=== PATIENT | female | born 1980 | race Caucasian/White ===

== ENCOUNTER 2019-05-18 13:13 | Emergency (ER) | payer BC ==
[2019-05-18] MEDS ORDERED: Ketorolac 60 MG/2 ML SDV IM ONE (14:58)
[2019-05-18] MEDS ORDERED: HYDROmorphone 1 MG/ML Syringe IM ONE (14:58)
--- NOTE | 2019-05-18 15:17 | EDM.PDOC ---
ED HPI GENERAL MEDICAL PROBLEM - General Chief Complaint: Back Pain or Injury Stated Complaint: HERNIATED SPINE PAIN Time Seen by Provider: 05/18/19 14:40 Source of Information: Reports: Patient, Old Records History Limitations: Reports: No Limitations - History of Present Illness INITIAL COMMENTS - FREE TEXT/NARRATIVE: 38-year-old female presents for evaluation and treatment of back pain. patient has been experiencing back pain for the last 6 weeks, progressively worsening. Patient reports back pain in the low back with radiation into her legs. She states that she has burning sensation in her back and legs. Pain primarily to her low back. She has been seen Dr. Rachel, pain management in [place] as well as Dr. Florez. She did see Dr. Florez yesterday and had multiple MRIs done yesterday. Most recently of an MRI of her lumbar spine in at which just shows some minor disc bulging with no central canal stenosis or neural foraminal stenosis. States that she had MRIs of her C-spine and T-spine done yesterday and was found to have a herniated spine. She has been referred to [facility] or [facility] for surgery for this. She states that she has appreciated weakness and bowel incontinence. She did make Dr. Florez aware of these symptoms yesterday. She does have hydrocodone at home but states that this is not helping with her pain. She did receive a steroid injection last Thursday but did not get any relief from this. She was previously on Flexeril as well but is not on this at this time. primary care provider is Madie Webb. She did contact her primary's office but she is not in today. Was previously in physical therapy; is not at this time. Lower Back Pain Score (Numeric/FACES): 8 - Related Data Allergies Allergy/AdvReac Type Severity Reaction Status Date / Time No Known Allergies Allergy Verified 05/18/19 13:23 Home Meds: Home Meds Hydrocodone/Acetaminophen [Hydrocodon-Acetaminophen 5-325] 1 each PO Q6H #10 tablet 01/31/16 [Rx] Past Medical History Musculoskeletal History: Reports: Other (See Below) Other Musculoskeletal History: buldged discs and herniated spine Neurological History: Reports: Migraines, Other (See Below) Other Neuro History: symptoms of MS - Past Surgical History GI Surgical History: Reports: Appendectomy, Cholecystectomy Female Surgical History: Reports: Tubal Ligation Social & Family History - Tobacco Use Smoking Status *Q: Current Every Day Smoker Years of Tobacco use: 15 Packs/Tins Daily: 1 - Caffeine Use Caffeine Use: Reports: Coffee - Recreational Drug Use Recreational Drug Use: No - Living Situation & Occupation Living situation: Reports: Occupation: Employed ED ROS GENERAL - Review of Systems Review Of Systems: See Below GI/Abdominal: Reports: Stool Incontinence : Denies: Incontinence Musculoskeletal: Reports: Back Pain, Leg Pain Neurological: Reports: Numbness, Tingling ED EXAM,LOWER BACK PAIN/INJURY - Physical Exam Exam: See Below Exam Limited By: No Limitations General Appearance: Alert, WD/WN, Moderate Distress, Thin Respiratory/Chest: No Respiratory Distress, Lungs Clear, Normal Breath Sounds Cardiovascular: Normal Peripheral Pulses, Regular Rate, Rhythm, No Murmur Back Exam: Normal Inspection, Other (ROM testing deferred due to pain; patinet sitting at 90 degrees in bend and even slight forward flexion agreviates her pain) Extremities: Normal Inspection Neurological: Alert, Normal Mood/Affect, Normal Dorsiflexion, Normal Plantar Flexion Psychiatric: Normal Affect, Normal Mood Skin Exam: Warm, Dry, Normal Color Course - Vital Signs Last Recorded V/S: Last Vital Signs Temp 97.5 F 05/18/19 13:18 Pulse 72 05/18/19 16:38 Resp 18 05/18/19 16:38 BP 130/72 05/18/19 16:38 Pulse Ox 99 05/18/19 13:18 - Orders/Labs/Meds Meds: Medications Discontinued Medications Generic Name Dose Route Start Last Admin Trade Name Morena PRN Reason Stop Dose Admin Hydromorphone HCl 1 mg 05/18/19 14:58 05/18/19 15:05 Dilaudid IM 05/18/19 14:59 1 mg ONETIME ONE Administration Hydromorphone HCl 0.5 mg 05/18/19 16:08 05/18/19 16:21 Dilaudid IM 05/18/19 16:09 0.5 mg ONETIME ONE Administration Ketorolac Tromethamine 60 mg 05/18/19 14:58 05/18/19 15:07 Toradol IM 05/18/19 14:59 60 mg ONETIME ONE Administration - Re-Assessments/Exams Free Text/Narrative Re-Assessment/Exam: 05/18/19 16:09 checked on the patient. Feeling improved. Pain still present. 0.5mg Im dilaudid ordered. Then will plan to discharge. Will send home with percocet. Educated the ER is unable to do chronic pain management awnd she needs to follow-up with PCP for further management of her pain. she expresses understanding. Discharge instructions as documented. Departure - Departure Time of Disposition: 16:11 Disposition: Home, Self-Care 01 Condition: Fair Clinical Impression: Back pain - Discharge Information *PRESCRIPTION DRUG MONITORING PROGRAM REVIEWED*: Yes *COPY OF PRESCRIPTION DRUG MONITORING REPORT IN PATIENT BELL: No Instructions: Acute Back Pain, Adult Referrals: Madie Webb NP [Primary Care Provider] - Oniel Church MD [Consulting Physician] - Kevin Marin MD [Ordering Only Provider] - Forms: ED Department Discharge Additional Instructions: Rx for percocet 5-325mg 1-2 tabs PO every 4-6 hours prn pain #20 dispensed from [facility] You were given medication in the ER that can affect your ability to drive and operate machinery. Do not drive or operate machinery within 10 hours of taking prescription narcotic pain medication. Percocet 1-2 tabs PO every 4-6 hours prn pain. Percocet is habit forming, take as few of these as needed to control your pain. Do not drive or operate machinery within 10 hours of taking prescription narcotic pain medication. Follow-up with your PCP for further pain management. unfortunately the ER is unable to manage chronic pain. I encourage your to follow-up with your PCP of pain specialist for further pain management. Please return to the ER should your symptoms change or worsen.
[2019-05-18] MEDS ORDERED: HYDROmorphone 0.5 MG/0.5 ML Syringe IM ONE (16:08)
[2019-05-18 16:49] VITALS: BP 130/72
== END 2019-05-18 16:38 | disposition home or self-care (01) ==
LOC: JD.ED 13:13
DX: M54.5 Low back pain (principal); F17.210 Nicotine dependence, cigarettes, uncomplicated; Z90.49 Acquired absence of other specified parts of digestive tract; Z98.51 Tubal ligation status
CPT/HCPCS: 96372; 99283; J1170; J1885

== ENCOUNTER 2022-01-22 14:58 | Emergency (ER) | payer BC ==
[2022-01-22] MEDS ORDERED: Metoclopramide 10 MG/2 ML SDV IVPUSH ONE (15:27)
[2022-01-22] MEDS ORDERED: diphenhydrAMINE 50 MG/ML SDV IVPUSH ONE (15:27)
[2022-01-22] MEDS ORDERED: Sodium Chloride 0.9% 1,000 ML IV ONE (15:27)
[2022-01-22] MEDS ORDERED: Ketorolac 30 MG/ML SDV IVPUSH ONE (15:27)
[2022-01-22 16:15] VITALS: BP 119/71; PULSE 76
== END 2022-01-22 17:35 | disposition home or self-care (01) ==
LOC: JD.ED 14:58
DX: G43.909 Migraine, unspecified, not intractable, without status migrainosus (principal); Z72.0 Tobacco use
CPT/HCPCS: 96374; 96375; 99283; J1200; J1885; J2765; J7030

== ENCOUNTER 2023-05-12 17:26 | Emergency (ER) | payer BC, OTHER ==
[2023-05-12 17:54] VITALS: BP 130/59
[2023-05-12] MEDS: Sodium Chloride 0.9% 10 ML Syringe FLUSH PRN ×2 (18:05→19:13)
[2023-05-12] MEDS ORDERED: Sodium Chloride 0.9% 1,000 ML IV STA (18:11)
[2023-05-12] MEDS ORDERED: Metoclopramide 10 MG/2 ML SDV IVPUSH ONE (18:11)
[2023-05-12] MEDS ORDERED: Ketorolac 30 MG/ML SDV IVPUSH ONE (18:11)
[2023-05-12] MEDS ORDERED: diphenhydrAMINE 50 MG/ML SDV IVPUSH ONE (18:12)
[2023-05-12] MEDS ORDERED: Dexamethasone 4 MG/ML SDV IVPUSH ONE (18:12)
[2023-05-12 18:24] LABS: BASOPHILS ABSOLUTE AUTO 0.04 K/mm3 (0.01-0.08); BASOPHILS PERCENT AUTO 0.4 % (0.1-1.2); EOSINOPHILS ABSOLUTE AUTO 0.18 K/mm3 (0.04-0.36); EOSINOPHILS PERCENT AUTO 1.9 (0.7-5.8); HEMATOCRIT 41.2 % (34.1-44.9); HEMOGLOBIN 13.3 gm/dl (11.2-15.7); IMMATURE GRAN ABSOLUTE AUTO 0.03 K/mm3 (0.00-0.10); IMMATURE GRAN PERCENT AUTO 0.3 % (<=1.0); LYMPHOCYTES ABSOLUTE AUTO 2.91 K/mm3 (1.18-3.74); LYMPHOCYTES PERCENT AUTO 30.2 % (19.3-51.7); MEAN CORPUSCULAR HEMOGLOBIN 29.8 pg (25.6-32.2); MEAN CORPUSCULAR HGB CONC 32.3 g/dl (32.2-35.5); MEAN CORPUSCULAR VOLUME 92.4 fl (79.4-94.8); MEAN PLATELET VOLUME 10.6 fl (9.4-12.3); MONOCYTES ABSOLUTE AUTO 0.89 K/mm3 (0.24-0.36); MONOCYTES PERCENT AUTO 9.2 % (4.7-12.5); PLATELET COUNT,PLT 312 K/mm3 (182-369); RED BLOOD CELL COUNT 4.46 M/mm3 (3.98-5.22); WHITE BLOOD CELL COUNT,WBC 9.65 K/mm3 (3.98-10.04)
[2023-05-12 18:40] LABS: A/G RATIO 1.2 (1-2); ALBUMIN 3.9 g/dl (3.4-5.0); ANION GAP 11.7 (5-15); BILIRUBIN TOTAL 0.1 mg/dL (0.2-1.0); CALCIUM 8.9 mg/dL (8.5-10.1); CREATININE 0.8 mg/dL (0.55-1.02); EST CRCL DRUG DOSING (CG) 78.3 mL/min; POTASSIUM,K 3.7 mEq/L (3.5-5.1); PROTEIN TOTAL,TP 7.1 g/dl (6.4-8.2)
[2023-05-12 19:59] VITALS: PULSE 73
== END 2023-05-12 20:09 | disposition home or self-care (01) ==
LOC: JD.ED 17:26
DX: G43.909 Migraine, unspecified, not intractable, without status migrainosus (principal); Z86.16 Personal history of COVID-19
CPT/HCPCS: 36415; 70450; 80053; 85025; 96374; 96375; 99285; J1100; J1200; J1885; J2765; J3490; J7030; 99284